=== PATIENT | male | born 1975 | race Two or more races ===

== ENCOUNTER 2022-07-06 07:14 | Outpatient (CLI) | payer OTHER | END 2022-07-06 07:17 | disposition home or self-care (01) | LOC: NUCLEAR 07:14 | PROVIDERS: ATTEND Internal Medicine | DX: Z01.810 Encounter for preprocedural cardiovascular examination (principal); R94.31 Abnormal electrocardiogram [ECG] [EKG] ==

== ENCOUNTER → 2023-01-28 | Outpatient (CLI) | payer OTHER | END | disposition home or self-care (01) | LOC: NUCLEAR 08:44 | PROVIDERS: ATTEND Internal Medicine | DX: I50.20 Unspecified systolic (congestive) heart failure (principal); I10 Essential (primary) hypertension | CPT/HCPCS: 78472; A9560 ==

== ENCOUNTER 2023-04-12 12:35 | Inpatient (IN) | payer OTHER ==
[~2023-04-12] VITALS: Ht 170.2 cm; Wt 129.3 kg
[2023-04-13] MEDS ORDERED: ABATINEX680 MG PO (13:35)
[2023-04-13] MEDS ORDERED: COLACE100 MG PO (13:36)
[2023-04-13] MEDS ORDERED: CHILDREN'S ASPI81 MG PO (13:36)
[2023-04-13] MEDS ORDERED: ENTRESTO 24 MG1 EACH PO (13:37)
[2023-04-13] MEDS ORDERED: JARDIANCE10 MG PO (13:37)
[2023-04-13] MEDS ORDERED: TOPROL XL25 M1 PO (13:37)
[2023-04-13] MEDS ORDERED: PEPCID AC20 MG PO (13:37)
[2023-04-18] MEDS ORDERED: HYOSCYAMINE0.125 M1 SL (10:02)
[2023-04-18] MEDS ORDERED: TRAMADOL HCL50 MG PO (10:03)
== END 2023-04-18 10:36 | disposition home or self-care (01) | DRG 330 ==
LOC: ADM 04-13 11:15 → EDSTATUS 04-13 11:15 → SURH 04-15 05:30 → O/R 04-15 05:30 → SURG 04-15 11:15 → SURH 04-15 17:37
PROVIDERS: ADMIT Surgery; ATTEND Surgery
PROC: 0DBP4ZZ Excision of Rectum, Percutaneous Endoscopic Approach (ICD-10-PCS; 2023-04-15)
PROC: 0DJD8ZZ Inspection of Lower Intestinal Tract, Via Natural or Artificial Opening Endoscopic (ICD-10-PCS; 2023-04-15)
PROC: 5A09357 Assistance with Respiratory Ventilation, Less than 24 Consecutive Hours, Continuous Positive Airway Pressure (ICD-10-PCS; 2023-04-15)
PROC: 0TP9X0Z Removal of Drainage Device from Ureter, External Approach (ICD-10-PCS; 2023-04-15)
PROC: 0T9780Z Drainage of Left Ureter with Drainage Device, Via Natural or Artificial Opening Endoscopic (ICD-10-PCS; 2023-04-15)
PROC: 0DTN4ZZ Resection of Sigmoid Colon, Percutaneous Endoscopic Approach (ICD-10-PCS; principal; 2023-04-15 13:30)
DX: K57.20 Diverticulitis of large intestine with perforation and abscess without bleeding (principal); I50.20 Unspecified systolic (congestive) heart failure; Z68.41 Body mass index [BMI] 40.0-44.9, adult; N32.89 Other specified disorders of bladder; R10.9 Unspecified abdominal pain; R19.4 Change in bowel habit; K66.0 Peritoneal adhesions (postprocedural) (postinfection); E66.01 Morbid (severe) obesity due to excess calories; G47.33 Obstructive sleep apnea (adult) (pediatric); R73.9 Hyperglycemia, unspecified; R06.09 Other forms of dyspnea; I11.0 Hypertensive heart disease with heart failure